=== PATIENT | male | born 1985 | race Caucasian/White ===

== ENCOUNTER 2016-03-13 10:15 | Outpatient (CLI) | payer MEDICAID, OTHER | END 2016-03-13 10:16 | disposition home or self-care (01) | DX: G47.33 Obstructive sleep apnea (adult) (pediatric) (principal) ==

== ENCOUNTER 2016-06-01 10:27 | Emergency (ER) | payer MEDICAID, OTHER ==
[2016-06-01] MEDS ORDERED: PROPARACAINE 0.5% OPHTH DROPS 15 ML ONE (11:58)
[2016-06-01] MEDS ORDERED: ERYTHROMYCIN OPHTH OINT 1 GM TUBE ONE (12:06)
== END 2016-06-01 12:21 | disposition home or self-care (01) ==
DX: H10.9 Unspecified conjunctivitis (principal); I10 Essential (primary) hypertension; E11.9 Type 2 diabetes mellitus without complications; Z79.4 Long term (current) use of insulin; Z87.891 Personal history of nicotine dependence
CPT/HCPCS: 99283; J3490

== ENCOUNTER 2016-07-21 10:18 | Outpatient (CLI) | payer MEDICAID ==
[2016-07-21 14:39] LABS: HEMOGLOBIN A1C 0.82 g/dL
[2016-07-21 15:00] LABS: ALBUMIN/GLOBULIN RATIO 1.5 (1.0-2.2); BILIRUBIN,TOTAL 1.2 mg/dL (0.2-1.0); BUN - BLOOD UREA NITROGEN 15 mg/dL (6-20); CARBON DIOXIDE - CO2 25 mmol/L (21-32); CHLORIDE 105 mmol/L (101-111); CHOLESTEROL 153 mg/dL; CREATININE 0.6 mg/dL (0.6-1.2); GFR - MDRD 158 (>89); GLUCOSE 141 mg/dL (70-100); HDL CHOLESTEROL 22 mg/dL; POTASSIUM 3.7 mmol/L (3.5-5.0); SODIUM 138 mmol/L (135-145); TRIGLYCERIDES 98 mg/dL; VLDL CHOLESTEROL 20 mg/dL
== END 2016-07-21 10:19 | disposition home or self-care (01) ==
LOC: LAB.WCP 10:18
PROVIDERS: ATTEND Family Medicine
DX: E11.9 Type 2 diabetes mellitus without complications (principal)
CPT/HCPCS: 36415; 80053; 80061; 82043; 83036; 84443

== ENCOUNTER 2016-08-22 11:45 | Outpatient (CLI) | payer MEDICAID | END 2016-08-22 11:46 | disposition home or self-care (01) | LOC: LAB.WCP 11:45 | PROVIDERS: ATTEND Family Medicine | DX: M79.676 Pain in unspecified toe(s) (principal) | CPT/HCPCS: 87070; 87077; 87205 ==

== ENCOUNTER 2017-09-20 11:27 | Emergency (ER) | payer MEDICAID ==
[2017-09-20] MEDS ORDERED: LIDOCAINE-EPINEPH-TETRACAINE 3 ML SYRINGE TOP STA (12:43)
[2017-09-20] MEDS ORDERED: cephALEXin 250 MG CAPSULE PO STA (12:43)
--- NOTE | 2017-09-20 13:15 | XRAY Report ---
Procedure Date: 09/20/2017 Accession Number: [id number] / [id number] Procedure: XR - Knee 4 View LT CPT Code: FULL RESULT: EXAM: LEFT KNEE RADIOGRAPHY EXAM DATE: 09/20/2017 01:04 PM. CLINICAL HISTORY: Fall on knee. Pain COMPARISON: None. TECHNIQUE: 4 views. FINDINGS: Bones: Normal. No fractures or bone lesions. Joints: Normal. No effusion. No subluxations. Soft Tissues: Normal. No soft tissue swelling. IMPRESSION: Normal knee radiography. RADIA
--- NOTE | 2017-09-20 14:18 | ED Physician Documentation ---
History of Present Illness - Stated complaint Stated Complaint: LT KNEE INJ - Chief complaint Chief Complaint: Ext Problem - Additonal information Additional information: hx from pt 31 male slipped on a placemenat and landed on L knee suffering a large arasion inc redness swelling and pain tdap UTD Review of Systems Constitutional: denies: Fever Musculoskeletal: reports: Joint pain PD PAST MEDICAL HISTORY - Past Medical History Past Medical History: Yes Cardiovascular: Hypertension Endocrine/Autoimmune: Type 2 diabetes - Present Medications Home Medications: Ambulatory Orders Medication Instructions Recorded Confirmed Cephalexin [Keflex] 500 mg PO Q6H #28 capsule 09/20/17 - Allergies Allergies/Adverse Reactions: Allergies Allergy/AdvReac Type Severity Reaction Status Date / Time No Known Drug Allergies Allergy Verified 09/20/17 11:32 - Social History Does the pt smoke?: No Smoking Status: Never smoker Does the pt drink ETOH?: Yes Does the pt have substance abuse?: No - Immunizations Immunizations are current?: Yes PD ED PE NORMAL - Vitals Vital signs reviewed: Yes - Extremities Extremities: Other (L knee + smalleffusion, large abrasions with necrotic superficial tissue and some dc and surrounding erythema, able to range knee s sig pain, small abrasion to dorsum of foot without infection, MSV intact) Results - Vitals Vitals: Vital Signs - 24 hr 09/20/17 11:30 Temperature 35.2 C L Heart Rate 81 Respiratory 20 Rate Blood Pressure 151/91 H O2 Saturation 98 Oxygen O2 Source Room air - Rads (name of study) knee Radiology: See rad report (no acute) PD MEDICAL DECISION MAKING - Sepsis Event Vital Signs: Vital Signs - 24 hr 09/20/17 11:30 Temperature 35.2 C L Heart Rate 81 Respiratory 20 Rate Blood Pressure 151/91 H O2 Saturation 98 Oxygen O2 Source Room air Departure - Departure Disposition: 01 Home, Self Care Clinical Impression: Infected abrasion Condition: Good Instructions: ED Abrasion Follow-Up: Avelino Kaplan MD [Primary Care Provider] - (for a recheck next week) Prescriptions: Cephalexin [Keflex] 500 mg PO Q6H #28 capsule Comments: The xray is fine - no fractures and no suggesting of deep tissue or bone infection The wound has been debrided and cleaned up and I have prescribed antibiotics for the developing infection. Please wash the wound and apply antibiotic ointment twice a day. Follow up with Dr Kaplan next week Return if worse
[2017-09-20 14:25] VITALS: BP 126/84
== END 2017-09-20 14:28 | disposition home or self-care (01) ==
LOC: ED 11:27
DX: S80.212A Abrasion, left knee, initial encounter (principal); L08.9 Local infection of the skin and subcutaneous tissue, unspecified; W01.10XA Fall on same level from slipping, tripping and stumbling with subsequent striking against unspecified object, initial encounter; I10 Essential (primary) hypertension; E11.9 Type 2 diabetes mellitus without complications
CPT/HCPCS: 73564; 99283; A9270

== ENCOUNTER 2017-12-08 10:21 | Emergency (ER) | payer SELFPAY ==
[2017-12-08 10:32] VITALS: BP 143/108
[2017-12-08] MEDS ORDERED: PROPARACAINE 0.5% OPHTH DROPS 15 ML RIGHTEYE STA (10:34)
--- NOTE | 2017-12-08 11:03 | ED Physician Documentation ---
PD HPI OPHTHO - Stated complaint Stated Complaint: EYE SCRATCH - Chief complaint Chief Complaint: Heent - History obtained from History obtained from: Patient - History of Present Illness Timing - onset: Enter time (729), Today Timing - duration: Hours Timing - details: Abrupt onset, Still present Location: Right Quality / character: Burning, Aching, Sharp Associated symptoms: Redness, Tearing, FB sensation Contributing factors: Blunt trauma Similar symptoms before: Has not had sx before Recently seen: Not recently seen - Additional information Additional information: 32-year-old previously well male was playing with his daughter this morning when she scratched him in the right eye. He had acute pain and has redness to the eye and has a foreign body sensation. He has tremendous pain associated with this. He has a lot of relief with the use of the proparacaine eyedrop. Review of Systems Constitutional: denies: Fever, Chills Eyes: reports: Irritation, Other (severe pain). denies: Loss of vision, Decreased vision Ears: denies: Ear pain Nose: denies: Congestion Throat: denies: Sore throat Respiratory: denies: Cough GI: denies: Vomiting PD PAST MEDICAL HISTORY - Past Medical History Past Medical History: Yes Cardiovascular: Hypertension Endocrine/Autoimmune: Type 2 diabetes Psych: ADD/ADHD - Past Surgical History Past Surgical History: No - Present Medications Home Medications: Ambulatory Orders Medication Instructions Recorded Confirmed Neomycin/Poly/Dex Ophth Drops 1 drops RIGHTEYE QID #1 bottle 12/08/17 [Maxitrol Ophth Drops] Oxycodone HCl/Acetaminophen 1 - 2 each PO Q6HR PRN #12 tablet 12/08/17 [Oxycodone-Acetaminophen 5-325] - Allergies Allergies/Adverse Reactions: Allergies Allergy/AdvReac Type Severity Reaction Status Date / Time No Known Drug Allergies Allergy Verified 12/08/17 10:32 - Social History Does the pt smoke?: No Smoking Status: Never smoker Does the pt drink ETOH?: Yes ETOH Use: Wine, Beer, Liquor Does the pt have substance abuse?: No - Immunizations Immunizations are current?: Yes - POLST Patient has POLST: No PD ED PE NORMAL - Vitals Vital signs reviewed: Yes (hypertensive ) - General General: Alert and oriented X 3, No acute distress, Well developed/nourished - HEENT HEENT: Atraumatic, PERRL, EOMI, Other (There is marked injection of the sclera on the right and a central corneal abrasion that is about 6mm in diameter in the center of the cornea. It looks like it would hurt. ) - Neck Neck: Supple, no meningeal sign - Respiratory Respiratory: No respiratory distress - Extremities Extremities: No deformity, No edema - Neuro Neuro: Alert and oriented X 3, leadite heater 2-12 intact, No motor deficit, No sensory deficit, Normal speech Eye Opening: Spontaneous Motor: Obeys Commands Verbal: Oriented GCS Score: 15 - Psych Psych: Normal mood, Normal affect Results - Vitals Vitals: Vital Signs - 24 hr 12/08/17 10:28 Temperature 36.0 C L Heart Rate 69 Respiratory 16 Rate Blood Pressure 143/108 H O2 Saturation 98 Oxygen O2 Source Room air PD MEDICAL DECISION MAKING - ED course Complexity details: considered differential, d/w patient ED course: 32 y/o male with a central corneal abrasion has lot of relief with the use of the proparicaine and we will put him on some maxitrol and some pain medication. - Sepsis Event Vital Signs: Vital Signs - 24 hr 12/08/17 10:28 Temperature 36.0 C L Heart Rate 69 Respiratory 16 Rate Blood Pressure 143/108 H O2 Saturation 98 Oxygen O2 Source Room air Departure - Departure Disposition: 01 Home, Self Care Clinical Impression: Corneal abrasion, right Qualifiers: Encounter type: initial encounter Qualified Code(s): S05.01XA - Injury of conjunctiva and corneal abrasion without foreign body, right eye, initial encounter Condition: Stable Instructions: ED Eye Injury Corneal Abrasion Follow-Up: Avelino Kaplan MD [Primary Care Provider] - Prescriptions: Oxycodone HCl/Acetaminophen [Oxycodone-Acetaminophen 5-325] 1 - 2 each PO Q6HR PRN #12 tablet PRN Reason: Pain Neomycin/Poly/Dex Ophth Drops [Maxitrol Ophth Drops] 1 drops RIGHTEYE QID #1 bottle Forms: Activity restrictions
== END 2017-12-08 11:25 | disposition home or self-care (01) ==
LOC: ED 10:21
DX: S05.01XA Injury of conjunctiva and corneal abrasion without foreign body, right eye, initial encounter (principal); W22.8XXA Striking against or struck by other objects, initial encounter; I10 Essential (primary) hypertension; E11.9 Type 2 diabetes mellitus without complications
CPT/HCPCS: 99283; J3490

== ENCOUNTER 2018-02-07 10:05 | Outpatient (CLI) | payer MEDICAID ==
[2018-02-07 13:48] LABS: HB2 TOTAL 17.6 g/dL; HEMOGLOBIN A1C 1.73 g/dL; HEMOGLOBIN A1C % 11.1 % (4.6-6.2)
[2018-02-07 14:19] LABS: BASOPHILS # (AUTO) 0.1 10^3/uL (0.0-0.1); EOSINOPHILS # (AUTO) 0.3 10^3/uL (0.0-0.7); EOSINOPHILS % (AUTO) 5.5 %; HGB - HEMOGLOBIN 15.9 g/dL (14.0-18.0); LYMPHOCYTES % (AUTO) 38.8 %; MEAN CORPUSCULAR HEMOGLOBIN 29.6 pg (27.0-31.0); MEAN CORPUSCULAR HGB CONC 35.3 g/dL (32.0-36.0); MEAN CORPUSCULAR VOLUME 83.9 fL (80.0-94.0); MEAN PLATELET VOLUME 10.2 fL (7.4-11.4); MONOCYTES # (AUTO) 0.4 10^3/uL (0.0-1.0); MONOCYTES % (AUTO) 7.6 %; NEUTROPHILS # (AUTO) 2.5 10^3/uL (1.5-6.6); NEUTROPHILS % (AUTO) 47.1 %; PLT - PLATELET COUNT 231 10^3/uL (130-450); RED BLOOD COUNT 5.38 10^6/uL (4.70-6.10); RED CELL DISTRIBUTION WIDTH 12.9 % (12.0-15.0); WHITE BLOOD COUNT 5.3 x10^3/uL (4.8-10.8)
[2018-02-07 14:48] LABS: CHOLESTEROL 519 mg/dL
[2018-02-07 14:55] LABS: SODIUM 133 mmol/L (135-145)
[2018-02-07 14:56] LABS: AST ASPARTATE AMINOTRANSFERASE 38 IU/L (10-42); BILIRUBIN,TOTAL 1.6 mg/dL (0.2-1.0); BUN - BLOOD UREA NITROGEN 24 mg/dL (6-20); CARBON DIOXIDE - CO2 24 mmol/L (21-32); CHLORIDE 97 mmol/L (101-111); CREATININE 0.7 mg/dL (0.6-1.2); GFR - MDRD 131 (>89); GLUCOSE 371 mg/dL (70-100)
[2018-02-07 14:57] LABS: ALBUMIN 4.1 g/dL (3.2-5.5); ALBUMIN/GLOBULIN RATIO 1.9 (1.0-2.2); ALT ALANINE AMINOTRANSFERASE 55 IU/L (10-60); TOTAL PROTEIN 6.3 g/dL (6.7-8.2)
== END 2018-02-07 23:59 | disposition home or self-care (01) ==
LOC: LAB.WCP 10:05
PROVIDERS: ATTEND Family Medicine
DX: E11.9 Type 2 diabetes mellitus without complications (principal)
CPT/HCPCS: 36415; 80053; 80061; 82043; 83036; 83721; 84443; 85025

== ENCOUNTER 2018-05-15 08:00 | Outpatient (CLI) | payer MEDICAID ==
[2018-05-15 12:52] LABS: ALBUMIN/GLOBULIN RATIO 1.3 (1.0-2.2); BILIRUBIN,TOTAL 1.1 mg/dL (0.2-1.0); CALCIUM 8.9 mg/dL (8.5-10.3); CREATININE 0.8 mg/dL (0.6-1.2); TOTAL PROTEIN 7.2 g/dL (6.7-8.2)
[2018-05-15 13:10] LABS: HB2 TOTAL 17.2 g/dL; HEMOGLOBIN A1C 1.25 g/dL; HEMOGLOBIN A1C % 8.8 % (4.6-6.2)
== END 2018-05-15 23:59 | disposition home or self-care (01) ==
LOC: LAB.WCP 08:00
PROVIDERS: ATTEND Family Medicine
DX: M43.10 Spondylolisthesis, site unspecified (principal); E11.42 Type 2 diabetes mellitus with diabetic polyneuropathy; F41.8 Other specified anxiety disorders
CPT/HCPCS: 36415; 80053; 83036

== ENCOUNTER 2018-07-30 09:03 | Outpatient (CLI) | payer MEDICAID | END 2018-07-30 09:04 | disposition home or self-care (01) | LOC: SC 09:03 | PROVIDERS: ATTEND Internal Medicine Pulmonary Disease | DX: G47.33 Obstructive sleep apnea (adult) (pediatric) (principal) | CPT/HCPCS: 99212; 99213 ==

== ENCOUNTER 2018-08-07 09:04 | Outpatient (CLI) | payer MEDICAID ==
[2018-08-07 12:44] LABS: ALBUMIN/GLOBULIN RATIO 1.2 (1.0-2.2); ALKALINE PHOSPHATASE 40 IU/L (42-121); ALT ALANINE AMINOTRANSFERASE 59 IU/L (10-60); AST ASPARTATE AMINOTRANSFERASE 35 IU/L (10-42); BILIRUBIN,TOTAL 0.6 mg/dL (0.2-1.0); BUN - BLOOD UREA NITROGEN 13 mg/dL (6-20); CALCIUM 8.6 mg/dL (8.5-10.3); CARBON DIOXIDE - CO2 23 mmol/L (21-32); CHLORIDE 105 mmol/L (101-111); CHOL/HDL RATIO 6.2 (<5.0); CHOLESTEROL 160 mg/dL; CREATININE 0.7 mg/dL (0.6-1.2); GFR - MDRD 131 (>89); GLUCOSE 152 mg/dL (70-100); HDL CHOLESTEROL 26 mg/dL; LDL CHOLESTEROL,CALCULATED 100 mg/dL; LDL/HDL RATIO 3.8 (<3.6); SODIUM 135 mmol/L (135-145); TOTAL PROTEIN 7.3 g/dL (6.7-8.2); VLDL CHOLESTEROL 34 mg/dL
[2018-08-07 12:52] LABS: HB2 TOTAL 15.9 g/dL; HEMOGLOBIN A1C 0.95 g/dL; HEMOGLOBIN A1C % 7.6 % (4.6-6.2)
== END 2018-08-07 09:05 | disposition home or self-care (01) ==
LOC: LAB.WCP 09:04
PROVIDERS: ATTEND Family Medicine
DX: E11.9 Type 2 diabetes mellitus without complications (principal)
CPT/HCPCS: 36415; 80053; 80061; 83036; 83721

== ENCOUNTER 2019-01-24 09:00 | Outpatient (CLI) | payer MEDICAID | END 2019-01-24 23:59 | disposition home or self-care (01) | LOC: LAB.R 09:00 | PROVIDERS: ATTEND Family Medicine | DX: R19.7 Diarrhea, unspecified (principal) | CPT/HCPCS: 81599; 83630; 87045; 87046; 87329; 87493 ==

== ENCOUNTER 2019-06-27 13:48 | Emergency (ER) | payer MEDICAID ==
--- NOTE | 2019-06-27 16:07 | XRAY Report ---
Reason: thumb injury Procedure Date: 06/27/2019 Accession Number: [id number] / [id number] Procedure: XR - Finger(s) RT CPT Code: Final Report FULL RESULT: EXAM: RIGHT FIRST DIGIT RADIOGRAPHY EXAM DATE: 06/27/2019 03:53 PM. CLINICAL HISTORY: Thumb injury. COMPARISON: None. TECHNIQUE: 3 views. FINDINGS: Bones: Sesamoids anterior to the metacarpophalangeal articulation and the interphalangeal articulation.. No fracture or bone lesion. Joints: Normal. No subluxations. Soft Tissues: Normal. No soft tissue swelling. IMPRESSION: No fracture identified [facility]
--- NOTE | 2019-06-27 16:48 | ED Physician Documentation ---
PD HPI UPPER EXT INJURY - Stated complaint Stated Complaint: RT THUMB PX - Chief complaint Chief Complaint: Ext Problem - History obtained from History obtained from: Patient - History of Present Illness Location: Right (He fell 2 months ago and injured his right thumb, persistent pain at the MCP.) Review of Systems Constitutional: reports: Reviewed and negative Ears: reports: Reviewed and negative Nose: reports: Reviewed and negative PD PAST MEDICAL HISTORY - Past Medical History Cardiovascular: Hypertension Neuro: None Endocrine/Autoimmune: Type 2 diabetes GI: GERD : None HEENT: None Psych: ADD/ADHD Musculoskeletal: None Derm: None - Past Surgical History Past Surgical History: No - Present Medications Home Medications: Ambulatory Orders Medication Instructions Recorded Confirmed Neomycin/Poly/Dex Ophth Drops 1 drops RIGHTEYE QID #1 bottle 12/08/17 [Maxitrol Ophth Drops] Oxycodone HCl/Acetaminophen 1 - 2 each PO Q6HR PRN #12 tablet 12/08/17 [Oxycodone-Acetaminophen 5-325] - Allergies Allergies/Adverse Reactions: Allergies Allergy/AdvReac Type Severity Reaction Status Date / Time No Known Drug Allergies Allergy Verified 06/27/19 13:57 - Social History Does the pt smoke?: No Smoking Status: Never smoker Does the pt drink ETOH?: Yes Does the pt have substance abuse?: No - Immunizations Immunizations are current?: Yes - POLST Patient has POLST: No PD ED PE NORMAL - Vitals Vital signs reviewed: Yes - General General: Alert and oriented X 3, No acute distress - Extremities Extremities: Other (No tenderness of the right thumb, no swelling or deformity. He does have laxity of the ulnar collateral ligaments compared with the other side.) - Neuro Neuro: Alert and oriented X 3, Normal speech Results - Vitals Vitals: Vital Signs - 24 hr 06/27/19 13:52 Temperature 36 C L Heart Rate 65 Respiratory 18 Rate Blood Pressure 143/85 H O2 Saturation 95 Oxygen O2 Source Room air - Rads (name of study) X-ray right thumb Radiology: EMP read contemporaneously (Normal) Departure - Departure Disposition: 01 Home, Self Care Clinical Impression: Rupture of UCL of right thumb Qualifiers: Encounter type: initial encounter Qualified Code(s): S63.641A - Sprain of metacarpophalangeal joint of right thumb, initial encounter Condition: Good Record reviewed to determine appropriate education?: Yes Instructions: [facility] Thumb Surg Follow-Up: Mark Soriano MD [Physician No Access] - Comments: It appears that 2 months ago you injured the ulnar collateral ligaments of the right thumb. You should follow-up next week with a hand surgeon. The closest is in [place], Dr. Ramos's number is listed on this form. The other number I am seeing online is [phone].
[2019-06-27 17:09] VITALS: BP 130/81
== END 2019-06-27 17:08 | disposition home or self-care (01) ==
LOC: ED 13:48
DX: S63.641A Sprain of metacarpophalangeal joint of right thumb, initial encounter (principal); W19.XXXA Unspecified fall, initial encounter; I10 Essential (primary) hypertension; E11.9 Type 2 diabetes mellitus without complications
CPT/HCPCS: 73140; 99283

== ENCOUNTER 2019-07-22 08:00 | Outpatient (CLI) | payer MEDICAID ==
[2019-07-22 13:45] LABS: BASOPHILS # (AUTO) 0.1 10^3/uL (0.0-0.1); BASOPHILS % (AUTO) 1.4 %; EOSINOPHILS # (AUTO) 0.3 10^3/uL (0.0-0.7); EOSINOPHILS % (AUTO) 4.9 %; HGB - HEMOGLOBIN 14.8 g/dL (14.0-18.0); LYMPHOCYTES # (AUTO) 2.2 10^3/uL (1.5-3.5); LYMPHOCYTES % (AUTO) 37.8 %; MEAN CORPUSCULAR HEMOGLOBIN 28.8 pg (27.0-31.0); MEAN CORPUSCULAR VOLUME 84.8 fL (80.0-94.0); MEAN PLATELET VOLUME 11.3 fL (7.4-11.4); MONOCYTES # (AUTO) 0.6 10^3/uL (0.0-1.0); MONOCYTES % (AUTO) 9.7 %; NEUTROPHILS # (AUTO) 2.7 10^3/uL (1.5-6.6); NEUTROPHILS % (AUTO) 45.9 %; PLT - PLATELET COUNT 247 10^3/uL (130-450); RED BLOOD COUNT 5.13 10^6/uL (4.70-6.10); RED CELL DISTRIBUTION WIDTH 12.7 % (12.0-15.0); WHITE BLOOD COUNT 5.9 x10^3/uL (4.8-10.8)
[2019-07-22 13:47] LABS: GLUCOSE, URINE (UA) NEGATIVE (NEGATIVE); KETONES,URINE (UA) NEGATIVE (NEGATIVE); LEUKOCYTE ESTERASE, URINE NEGATIVE (NEGATIVE); NITRITE,URINE NEGATIVE (NEGATIVE); OCCULT BLOOD,URINE NEGATIVE (NEGATIVE); PROTEIN,URINE NEGATIVE (NEGATIVE); UROBILINOGEN,URINE 2 E.U./dL (NORMAL)
[2019-07-22 13:53] LABS: BILIRUBIN,URINE NEGATIVE (NEGATIVE); CLARITY,URINE CLEAR (CLEAR); ICTOTEST,URINE NEGATIVE
[2019-07-22 14:15] LABS: ALBUMIN 4.1 g/dL (3.2-5.5); ALBUMIN/GLOBULIN RATIO 1.2 (1.0-2.2); BILIRUBIN,TOTAL 0.9 mg/dL (0.2-1.0); CREATININE 0.8 mg/dL (0.6-1.2); TOTAL PROTEIN 7.4 g/dL (6.7-8.2)
[2019-07-22 14:21] LABS: HB2 TOTAL 15.9 g/dL; HEMOGLOBIN A1C 0.89 g/dL; HEMOGLOBIN A1C % 7.3 % (4.6-6.2)
[2019-07-22 14:22] LABS: CREATININE,URINE 210.8 mg/dL; MICROALBUM/CREATININE RATIO,UR 20.9 ug/mg (<30.0); MICROALBUMIN,URINE 4.4 mg/dL (0-300.0)
== END 2019-07-22 23:59 | disposition home or self-care (01) ==
LOC: LAB.WCP 08:00
PROVIDERS: ATTEND Family Medicine
DX: E11.9 Type 2 diabetes mellitus without complications (principal); R19.7 Diarrhea, unspecified; R82.90 Unspecified abnormal findings in urine
CPT/HCPCS: 36415; 80053; 81001; 81003; 82043; 82570; 83036; 85025; 87086

== ENCOUNTER 2019-07-25 12:40 | Outpatient (CLI) | payer MEDICAID ==
[2019-07-26 15:19] LABS: HEPATITIS C ANTIBODY NON-REACTIVE (NON-REACTIVE)
== END 2019-07-25 12:41 | disposition home or self-care (01) ==
LOC: LAB 12:40
PROVIDERS: ATTEND Nurse Practitioner Family
DX: R82.998 Other abnormal findings in urine (principal)
CPT/HCPCS: 36415; 86317; 86709; 86803

== ENCOUNTER 2019-08-01 12:41 | Outpatient (CLI) | payer MEDICAID ==
--- NOTE | 2019-08-01 14:37 | Ultrasound Report ---
Reason: OTHER ABNORMAL FINDINGS IN URINE Procedure Date: 08/01/2019 Accession Number: [id number] / [id number] Procedure: US - Abdomen Complete CPT Code: Final Report FULL RESULT: EXAM: ABDOMEN ULTRASOUND EXAM DATE: 08/01/2019 02:13 PM. CLINICAL HISTORY: OTHER ABNORMAL FINDINGS IN URINE. Right upper quadrant pain for 2-3 months. COMPARISON: None. TECHNIQUE: Real-time scanning was performed with static images obtained. FINDINGS: Liver: Moderate diffuse fatty liver with diffuse hyperechogenicity. 20 cm. Main portal vein flow: Hepatopetal. Gallbladder: Normal. No stones, wall thickening, or sonographic Lay's sign. Biliary System: Common duct measures 3 mm. No intrahepatic or extrahepatic ductal dilatation. Pancreas: Visualized portion is unremarkable. Kidneys: Right: 14.8 cm longitudinally. Within normal limits. No contour-deforming mass, stones, or hydronephrosis. Normal variant column of López is noted. Left: 14.1 cm longitudinally. Within normal limits. No contour-deforming mass, stones, or hydronephrosis. Normal variant column of López is noted. Spleen: 11.8 cm. Normal in size and echotexture. Aorta and Inferior Vena Cava: Unremarkable. IMPRESSION: 1. Moderate fatty liver. No acute findings. See above. RADIA
== END 2019-08-01 12:42 | disposition home or self-care (01) ==
LOC: DI 12:41
PROVIDERS: ATTEND Nurse Practitioner Family
DX: K76.0 Fatty (change of) liver, not elsewhere classified (principal)
CPT/HCPCS: 76700

== ENCOUNTER 2019-09-15 11:43 | Outpatient (CLI) | payer MEDICAID | END 2019-09-15 23:59 | disposition home or self-care (01) | LOC: COV 11:43 | PROVIDERS: ATTEND Family Medicine | DX: Z01.812 Encounter for preprocedural laboratory examination (principal); Z20.828 Contact with and (suspected) exposure to other viral communicable diseases ==

== ENCOUNTER 2019-12-18 20:20 | Outpatient (CLI) | payer MEDICAID | END 2019-12-18 20:21 | disposition home or self-care (01) | LOC: COV 20:20 | PROVIDERS: ATTEND Family Medicine | DX: Z20.828 Contact with and (suspected) exposure to other viral communicable diseases (principal) ==

== ENCOUNTER 2019-12-30 23:26 | Outpatient (CLI) | payer MEDICAID | END 2019-12-30 23:27 | disposition critical access hospital (66) | LOC: EMS 23:26 | PROVIDERS: ATTEND Surgery | DX: R56.9 Unspecified convulsions (principal) | CPT/HCPCS: A0425; A0429; A0999 ==

== ENCOUNTER 2019-12-30 23:42 | Emergency (ER) | payer MEDICAID ==
--- NOTE | 2019-12-31 00:40 | ED Physician Documentation ---
PD HPI SEIZURE - Stated complaint Stated Complaint: POSS SEIZURE - Chief complaint Chief Complaint: General - History obtained from History obtained from: Patient - History of Present Illness Timing - onset: Today (shortly [employer]) Witnessed: Witnessed (Says he was not feeling well earlier in the day while at work and when he came home he was pale and sweaty. He had decreased talking abruptly and looked like he was going to pass out. He started tremoring whole body and she walked him a couple of steps to the couch where he fainted and seized.) Number of seizures: Single, Lasted minutes Description of seizure activity: Generalized Injury during seizure: No: Fell, Head injury Associated symptoms: Diaphoresis. No: Chest pain, Dyspnea History of seizures: No: Known seizure disorder Contributing factors: Other (He was feeling ill for much of the day with feeling of chills, aches, some nausea. Denies headache. He has had abdominal pain for about a week epigastric worse with eating.) Similar symptoms before: Has not had sx before (Had the epigastric pain and evaluated by GI with endoscopy and treated what sounds like for H. pylori. No prior seizure-like episodes.) Recently seen: Not recently seen Review of Systems Constitutional: reports: Chills (today), Myalgias. denies: Fever Nose: denies: Rhinorrhea / runny nose, Congestion Throat: denies: Sore throat Cardiac: denies: Chest pain / pressure Respiratory: denies: Cough GI: reports: Abdominal Pain (intermittent for the past week), Nausea. denies: Vomiting, Diarrhea, Bloody / black stool : denies: Dysuria Neurologic: reports: Generalized weakness (today), Syncope. denies: Difficulty speaking, Headache, Head injury Immunocompromised: denies: Immunocompromised PD PAST MEDICAL HISTORY - Past Medical History Cardiovascular: Hypertension Neuro: None Endocrine/Autoimmune: Type 2 diabetes GI: GERD : None HEENT: None Psych: ADD/ADHD Musculoskeletal: None Derm: None - Past Surgical History Past Surgical History: No - Present Medications Home Medications: Ambulatory Orders Medication Instructions Recorded Confirmed clonazePAM [Clonazepam] 0.5 mg PO DAILY PRN 12/30/19 12/30/19 Ondansetron Odt [Zofran] 4 mg TL Q6H PRN #10 tablet 12/31/19 Pantoprazole Sodium 20 mg PO DAILY #30 tablet.dr 12/31/19 Sucralfate [Carafate] 1 gm PO ACHS #20 tablet 12/31/19 - Allergies Allergies/Adverse Reactions: Allergies Allergy/AdvReac Type Severity Reaction Status Date / Time No Known Drug Allergies Allergy Verified 12/30/19 23:55 - Social History Does the pt smoke?: No Smoking Status: Never smoker Does the pt drink ETOH?: Yes Does the pt have substance abuse?: No Substance Use and Type: Marijuana - Immunizations Immunizations are current?: Yes - POLST Patient has POLST: No PD ED PE NORMAL - Vitals Vital signs reviewed: Yes - General General: Alert and oriented X 3, Well developed/nourished, Other (conversant and oriented.) - HEENT HEENT: Moist mucous membranes, Pharynx benign - Neck Neck: Supple, no meningeal sign, No adenopathy - Cardiac Cardiac: RRR, No murmur - Respiratory Respiratory: Clear bilaterally - Abdomen Abdomen: Normal bowel sounds, Soft, Non distended, No organomegaly, Other (tender right upper abd and epigastric area. Some guarding. No percussion tenderness. ) - Male Male : Deferred - Rectal Rectal: Deferred - Back Back: No CVA TTP - Derm Derm: Warm and dry. No: Normal color (mild pallor) Results - Vitals Vitals: Vital Signs - 24 hr 12/30/19 12/30/19 12/31/19 23:51 23:59 00:49 Temperature 37.8 C H 37.8 C H Heart Rate 96 96 80 Respiratory 24 24 17 Rate Blood Pressure 155/97 H 155/97 H O2 Saturation 98 98 99 12/31/19 12/31/19 01:45 03:07 Temperature 37.1 C 38 C H Heart Rate 78 Respiratory 18 Rate Blood Pressure 123/64 O2 Saturation 99 Oxygen O2 Source Room air - Labs Labs: Laboratory Tests 12/31/19 12/31/19 12/31/19 01:12 01:12 01:12 WBC 7.5 RBC 5.00 Hgb 15.1 Hct 43.6 MCV 87.2 MCH 30.2 MCHC 34.6 RDW 12.8 Plt Count 234 MPV 10.6 Neut # (Auto) 5.2 Lymph # (Auto) 1.5 [place] # (Auto) 0.6 Eos # (Auto) 0.1 Baso # (Auto) 0.1 Absolute Nucleated RBC 0.00 Nucleated RBC % 0.0 Sodium 139 Potassium 3.7 Chloride 104 Carbon Dioxide 27 Anion Gap 8.0 BUN 15 Creatinine 0.8 Estimated GFR (MDRD) 111 Glucose 155 H Lactic Acid Calcium 9.3 Magnesium 1.6 L Total Bilirubin 0.9 AST 22 ALT 34 Alkaline Phosphatase 37 L Total Protein 7.7 Albumin 4.3 Globulin 3.4 Albumin/Globulin Ratio 1.3 Lipase 36 TSH 0.94 Prolactin 7.80 Urine Color Urine Clarity Urine pH Ur Specific [place] Urine Protein Urine Glucose (UA) Urine Ketones Urine Occult Blood Urine Nitrite Urine Bilirubin Urine Urobilinogen Ur Leukocyte Esterase Ur Microscopic Review Urine Culture Comments Urine Opiates Screen Ur Oxycodone Screen Urine Methadone Screen Ur Propoxyphene Screen Ur Barbiturates Screen Ur Tricyclics Screen Ur Phencyclidine Scrn Ur Amphetamine Screen U Methamphetamines Scrn U Benzodiazepines Scrn Urine Cocaine Screen U Cannabinoids Screen 12/31/19 12/31/19 01:25 01:39 WBC RBC Hgb Hct MCV MCH MCHC RDW Plt Count MPV Neut # (Auto) Lymph # (Auto) [place] # (Auto) Eos # (Auto) Baso # (Auto) Absolute Nucleated RBC Nucleated RBC % Sodium Potassium Chloride Carbon Dioxide Anion Gap BUN Creatinine Estimated GFR (MDRD) Glucose Lactic Acid 1.0 Calcium Magnesium Total Bilirubin AST ALT Alkaline Phosphatase Total Protein Albumin Globulin Albumin/Globulin Ratio Lipase TSH Prolactin Urine Color YELLOW Urine Clarity CLEAR Urine pH 5.5 Ur Specific [place] >=1.030 H Urine Protein NEGATIVE Urine Glucose (UA) NEGATIVE Urine Ketones NEGATIVE Urine Occult Blood NEGATIVE Urine Nitrite NEGATIVE Urine Bilirubin NEGATIVE Urine Urobilinogen 0.2 (NORMAL) Ur Leukocyte Esterase NEGATIVE Ur Microscopic Review NOT INDICATED Urine Culture Comments NOT INDICATED Urine Opiates Screen NEGATIVE Ur Oxycodone Screen NEGATIVE Urine Methadone Screen NEGATIVE Ur Propoxyphene Screen NEGATIVE Ur Barbiturates Screen NEGATIVE Ur Tricyclics Screen NEGATIVE Ur Phencyclidine Scrn NEGATIVE Ur Amphetamine Screen NEGATIVE U Methamphetamines Scrn NEGATIVE U Benzodiazepines Scrn NEGATIVE Urine Cocaine Screen NEGATIVE U Cannabinoids Screen POSITIVE H - Rads (name of study) head CT Radiology: Prelim report reviewed (no acute process), See rad report abd CT Radiology: Prelim report reviewed (No acute abnormalities nor signs of localized infections.), See rad report PD MEDICAL DECISION MAKING - ED course Complexity details: reviewed results (feeling better with fluids/meds. ), c onsidered differential (described seizure like activity by , but he had pre- syncope symptoms prior. So may have been syncope with seizure related and less likely primary seizure. ), d/w patient, d/w family () ED course: Despite feeling generally ill with chills and malaise and appearing diaphoretic and then fainting with seizure-like activity, the patient's labs are actually quite normal with a normal abdominal CT and normal white count and lactate. He is tender in the upper abdomen and has had prior history of gastritis/ulcer. Presume a recurrence of this. Given his age, be less likely to have primary epilepsy and a more inclined to think he had seizure-like activity related to the syncope. He is feeling improved with fluids here Departure - Departure Disposition: 01 Home, Self Care Clinical Impression: Witnessed seizure-like activity, Upper abdominal pain Syncope Qualifiers: Syncope type: unspecified Qualified Code(s): R55 - Syncope and collapse Condition: Stable Record reviewed to determine appropriate education?: Yes Instructions: ED Fainting Unkn Cause, ED PUD Vs Gastritis Follow-Up: [facility] [Provider Group] Prescriptions: Sucralfate [Carafate] 1 gm PO ACHS #20 tablet Pantoprazole Sodium 20 mg PO DAILY #30 tablet. Ondansetron Odt [Zofran] 4 mg TL Q6H PRN #10 tablet PRN Reason: Nausea / Vomiting Comments: Your head CT does not show any signs of acute abnormality. It would be unusual to have new onset seizures at your age and your symptoms does sound more like a illness or low blood pressure with the sweating and weakness and pale prior to the episode. I think it was more of a fainting episode with seizure-like activity. Your blood tests and CT of the abdomen do not show any obvious acute process. Your symptoms would be suggestive of recurrent gastritis or ulcer so we can tr eat it with pantoprazole acid reducing medicine. I would also start with sucralfate to coat the stomach several times a day for the first 5 days. Ondansetron if needed for nausea. Stay well-hydrated. Tylenol if needed for pains. Follow-up with your case sealer to update on your stomach symptoms. Otherwise follow-up with your primary care if not improved over the next few days. Forms: Activity restrictions Discharge Date/Time: 12/31/19 03:09
[2019-12-31] MEDS ORDERED: SODIUM CHLORIDE 0.9% 1,000 ML IV STA (01:15)
[2019-12-31] MEDS ORDERED: KETOROLAC 30 MG/ML VIAL IVP STA (01:15)
[2019-12-31] MEDS ORDERED: ONDANSETRON 4 MG/2 ML VIAL IVP STA (01:16)
[2019-12-31] MEDS ORDERED: FAMOTIDINE 20 MG/2 ML SYRINGE IVP STA (01:16)
[2019-12-31] MEDS ORDERED: KETOROLAC 15 MG/ML VIAL IVP STA (01:16)
[2019-12-31 01:21] LABS: BASOPHILS # (AUTO) 0.1 10^3/uL (0.0-0.1); BASOPHILS % (AUTO) 0.7 %; EOSINOPHILS # (AUTO) 0.1 10^3/uL (0.0-0.7); EOSINOPHILS % (AUTO) 1.9 %; HGB - HEMOGLOBIN 15.1 g/dL (14.0-18.0); LYMPHOCYTES # (AUTO) 1.5 10^3/uL (1.5-3.5); LYMPHOCYTES % (AUTO) 19.5 %; MEAN CORPUSCULAR HEMOGLOBIN 30.2 pg (27.0-31.0); MEAN CORPUSCULAR HGB CONC 34.6 g/dL (32.0-36.0); MEAN CORPUSCULAR VOLUME 87.2 fL (80.0-94.0); MEAN PLATELET VOLUME 10.6 fL (7.4-11.4); MONOCYTES # (AUTO) 0.6 10^3/uL (0.0-1.0); MONOCYTES % (AUTO) 8.2 %; NEUTROPHILS # (AUTO) 5.2 10^3/uL (1.5-6.6); NEUTROPHILS % (AUTO) 69.2 %; PLT - PLATELET COUNT 234 10^3/uL (130-450); RED CELL DISTRIBUTION WIDTH 12.8 % (12.0-15.0); WHITE BLOOD COUNT 7.5 x10^3/uL (4.8-10.8)
[2019-12-31 01:31] LABS: ALBUMIN 4.3 g/dL (3.2-5.5); ALBUMIN/GLOBULIN RATIO 1.3 (1.0-2.2); BILIRUBIN,TOTAL 0.9 mg/dL (0.2-1.0); CALCIUM 9.3 mg/dL (8.5-10.3); CREATININE 0.8 mg/dL (0.6-1.2); MAGNESIUM 1.6 mg/dL (1.7-2.8); TOTAL PROTEIN 7.7 g/dL (6.7-8.2)
[2019-12-31] MEDS ORDERED: IOVERSOL 320 100 ML VIAL IVP ONE (01:42)
[2019-12-31 01:45] LABS: GLUCOSE, URINE (UA) NEGATIVE (NEGATIVE); KETONES,URINE (UA) NEGATIVE (NEGATIVE); LEUKOCYTE ESTERASE, URINE NEGATIVE (NEGATIVE); MUDS CUTOFF CONCENTRATIONS CUTOFF CONC BELOW:; NITRITE,URINE NEGATIVE (NEGATIVE); OCCULT BLOOD,URINE NEGATIVE (NEGATIVE); PH,URINE 5.5 PH (5.0-7.5); PROTEIN,URINE NEGATIVE (NEGATIVE); UROBILINOGEN,URINE 0.2 (NORMAL) E.U./dL (NORMAL)
[2019-12-31 01:47] LABS: BILIRUBIN,URINE NEGATIVE (NEGATIVE); CLARITY,URINE CLEAR (CLEAR); ICTOTEST,URINE NEGATIVE
[2019-12-31 01:48] LABS: THYROID STIMULATING HORMONE 0.94 uIU/mL (0.34-5.60)
[2019-12-31 01:54] LABS: AMPHETAMINE SCREEN,URINE NEGATIVE (NEGATIVE); BENZODIAZEPINES SCREEN, URINE NEGATIVE (NEGATIVE); COCAINE SCREEN URINE NEGATIVE (NEGATIVE); METHADONE SCREEN, URINE NEGATIVE (NEGATIVE); METHAMPHETAMINES SCREEN, URINE NEGATIVE (NEGATIVE); OPIATE SCREEN, URINE NEGATIVE (NEGATIVE); TRICYCLIC ANTIDEPRESSANT,URINE NEGATIVE (NEGATIVE)
[2019-12-31 01:54] LABS: PROLACTIN 7.8 ng/mL
[2019-12-31 01:55] LABS: OXYCODONE SCREEN, URINE NEGATIVE (NEGATIVE); PROPOXYPHENE SCREEN, URINE NEGATIVE (NEGATIVE)
[2019-12-31 03:08] VITALS: BP 123/64
--- NOTE | 2019-12-31 07:15 | CT Report ---
PROCEDURE: HEAD WO INDICATIONS: seizure activity this evening TECHNIQUE: Noncontrast 4.5 mm thick angled axial sections acquired from the foramen magnum to the vertex. For r adiation dose reduction, the following was used: automated exposure control, adjustment of mA and/or kV according to patient size. COMPARISON: None. FINDINGS: Image quality: Excellent. CSF spaces: Basal cisterns are patent. No extra-axial fluid collections. Ventricles are normal in size and shape. Brain: No midline shift. No intracranial masses or hemorrhage. Lombardo-white matter interface is norm al. Skull and face: Calvarium and visualized facial bones are intact, without suspicious lesions. Sinuses: Visualized sinuses and mastoids are clear. IMPRESSION: No acute intracranial disease process. Reviewed by: Juhi Drew MD, PhD on 12/31/2019 7:14 AM PDT Approved by: Juhi Drew MD, PhD on 12/31/2019 7:14 AM PDT Station ID: [id number]
--- NOTE | 2019-12-31 08:36 | CT Report ---
PROCEDURE: Abdomen/Pelvis W INDICATIONS: upper abd pain for week CONTRAST: IV CONTRAST: Optiray 320 ml: 100 PO CONTRAST: *NO PO CONTRAST TECHNIQUE: After the administration of nonionic contrast, 5 mm thick sections acquired from the diaphragms to th e symphysis. 5 mm thick coronal and sagittal reformats were acquired. For radiation dose reduction, the following was used: automated exposure control, adjustment of mA and/or kV according to patient size. COMPARISON: Abdominal ultrasound 08/01/2019. FINDINGS: Image quality: Excellent. ABDOMEN: Lung bases: Lung bases are clear. Heart size is normal. Solid organs: The spleen is normal in size and enhancement. The liver is enlarged at 20.2 cm cranioc audad, and appears diffusely fatty infiltrated. Gallbladder appears normal Biliary system is non dil ated. Pancreas enhances normally. No adrenal nodules. Kidneys demonstrate normal size and enhancem ent, without hydronephrosis. Peritoneum and bowel: Bowel loops demonstrate normal wall thickness and caliber. No free fluid or a ir. Nodes and vessels: No retroperitoneal or mesenteric adenopathy by size criteria. Aorta and inferior vena cava are normal in size. Miscellaneous: No ventral hernias. PELVIS: Genitourinary: Bladder wall thickness is normal. Miscellaneous: No inguinal hernias or adenopathy. Bones: No suspicious bony lesions. No vertebral body compression fractures. IMPRESSION: Hepatomegaly, with mild fatty infiltration through the liver. This may represent a poten tial source of upper abdominal pain that has been clinically reported. There is no sign of intestinal obstruction or perforation. Reviewed by: Wolf Page MD on 12/31/2019 8:34 AM PDT Approved by: Wolf Page MD on 12/31/2019 8:34 AM PDT Station ID: [id number]
== END 2019-12-31 03:09 | disposition home or self-care (01) ==
LOC: EDUNIT# → ED 23:42
DX: R55 Syncope and collapse (principal); R56.9 Unspecified convulsions; R10.10 Upper abdominal pain, unspecified; I10 Essential (primary) hypertension; E11.9 Type 2 diabetes mellitus without complications
CPT/HCPCS: 36415; 70450; 74177; 80053; 80306; 81003; 83605; 83690; 83735; 84146; 84443; 85025; 96361; 96374; 99284; Q9967; 81001; 87086

== ENCOUNTER 2020-01-14 14:17 | Outpatient (CLI) | payer MEDICAID ==
--- NOTE | 2020-01-14 17:13 | XRAY Report ---
PROCEDURE: Shoulder 2 View LT INDICATIONS: LEFT SHOULDER PAIN TECHNIQUE: 2 views of the shoulder were acquired. COMPARISON: None. FINDINGS: Bones: No fractures or dislocations. No suspicious bony lesions. Visualized ribs appear intact. Soft tissues: No suspicious soft tissue calcifications. IMPRESSION: Mild to moderate AC joint osteoarthritis. No trauma found. Reviewed by: Wolf Page MD on 01/14/2020 5:11 PM [facility] Approved by: Wolf Page MD on 01/14/2020 5:11 PM [facility] Station ID: [id number]
== END 2020-01-14 23:59 | disposition home or self-care (01) ==
LOC: DI.WCP 14:17
PROVIDERS: ATTEND Family Medicine
DX: M19.012 Primary osteoarthritis, left shoulder (principal)

== ENCOUNTER 2020-02-26 18:27 | Outpatient (CLI) | payer MEDICAID | END 2020-02-26 18:28 | disposition home or self-care (01) | LOC: COV 18:27 | PROVIDERS: ATTEND Family Medicine | DX: Z20.828 Contact with and (suspected) exposure to other viral communicable diseases (principal) ==

== ENCOUNTER 2020-04-26 16:57 | Outpatient (CLI) | payer MEDICAID | END 2020-04-26 16:58 | disposition home or self-care (01) | LOC: COV 16:57 | PROVIDERS: ATTEND Family Medicine | DX: Z20.822 Contact with and (suspected) exposure to COVID-19 (principal) ==

== ENCOUNTER 2020-05-12 08:00 | Outpatient (CLI) | payer MEDICAID ==
[2020-05-12 12:36] LABS: BASOPHILS # (AUTO) 0.1 10^3/uL (0.0-0.1); BASOPHILS % (AUTO) 1.3 %; EOSINOPHILS # (AUTO) 0.4 10^3/uL (0.0-0.7); EOSINOPHILS % (AUTO) 6.1 %; HCT - HEMATOCRIT 44.9 % (42.0-52.0); HGB - HEMOGLOBIN 15.6 g/dL (14.0-18.0); LYMPHOCYTES % (AUTO) 27.2 %; MEAN CORPUSCULAR HEMOGLOBIN 29.8 pg (27.0-31.0); MEAN CORPUSCULAR HGB CONC 34.7 g/dL (32.0-36.0); MEAN CORPUSCULAR VOLUME 85.9 fL (80.0-94.0); MEAN PLATELET VOLUME 11.5 fL (7.4-11.4); MONOCYTES # (AUTO) 0.6 10^3/uL (0.0-1.0); MONOCYTES % (AUTO) 8.5 %; NEUTROPHILS % (AUTO) 56.1 %; PLT - PLATELET COUNT 241 10^3/uL (130-450); RED BLOOD COUNT 5.23 10^6/uL (4.70-6.10); RED CELL DISTRIBUTION WIDTH 12.4 % (12.0-15.0); WHITE BLOOD COUNT 7.2 x10^3/uL (4.8-10.8)
[2020-05-12 12:42] LABS: ESTIMATED AVERAGE GLUCOSE 177 mg/dL (70-100); HEMOGLOBIN A1c% 7.8 % (4.27-6.07)
[2020-05-12 12:56] LABS: ALBUMIN 4.2 g/dL (3.2-5.5); ALBUMIN/GLOBULIN RATIO 1.4 (1.0-2.2); ALKALINE PHOSPHATASE 58 IU/L (42-121); ALT ALANINE AMINOTRANSFERASE 34 IU/L (10-60); AST ASPARTATE AMINOTRANSFERASE 22 IU/L (10-42); BILIRUBIN,TOTAL 0.6 mg/dL (0.2-1.0); BUN - BLOOD UREA NITROGEN 23 mg/dL (6-20); CALCIUM 8.8 mg/dL (8.5-10.3); CARBON DIOXIDE - CO2 27 mmol/L (21-32); CHLORIDE 101 mmol/L (101-111); CHOL/HDL RATIO 9.4 (<5.0); CHOLESTEROL 216 mg/dL; CREATININE 0.8 mg/dL (0.6-1.2); GFR - MDRD 111 (>89); GLUCOSE 251 mg/dL (70-100); HDL CHOLESTEROL 23 mg/dL; POTASSIUM 4.1 mmol/L (3.5-5.0); SODIUM 134 mmol/L (135-145); TOTAL PROTEIN 7.2 g/dL (6.7-8.2); TRIGLYCERIDES 599 mg/dL
[2020-05-12 13:00] LABS: THYROID STIMULATING HORMONE 1.96 uIU/mL (0.34-5.60)
[2020-05-12 13:17] LABS: LDL CHOLESTEROL,DIRECT 87 mg/dL; LDLD/HDL RATIO 3.8 (<3.6)
== END 2020-05-12 23:59 | disposition home or self-care (01) ==
LOC: LAB.WCP 08:00
PROVIDERS: ATTEND Family Medicine
DX: E11.9 Type 2 diabetes mellitus without complications (principal)
CPT/HCPCS: 36415; 80053; 80061; 83036; 83721; 84443; 85025

== ENCOUNTER 2020-07-01 09:47 | Outpatient (CLI) | payer MEDICAID ==
--- NOTE | 2020-07-01 10:22 | SLEEP CARE CONSULTATION ---
Information from patient questionnaire entered by Siena Austin. I have reviewed and concur with the information entered by Siena Austin. This document represents the service I personally performed and the decisions made by , Aline Yost ARNP. History of Present Illness Service Date and Time: 07/01/2020 0947 Previous diagnosis: Extremely Severe, Obstructive Sleep Apnea-Hypopnea Syndrome AHI: 93 (in 2011) Reason for follow up: annual (last seen 07/2018) Equipment type: CPAP Equipment obtained from: [employer] (no longer giving supplies to people) Mask style: Nasal (over the nose) Backup mask available: No (will need keep old one when replaced) Last cushion change: 2 years Prior sleep studies: Yes Year and Where: 2011 [facility] in [facility] additional information: ALFREDO MARK was diagnosed to have extremely severe, AHI 93, obstructive sleep apnea-hypopnea syndrome and returned today for CPAP therapy annual follow-up. CPAP Compliance Data Compliance data discussion: Alfredo did not have a memory card in his machine and we are unable to download his compliance information. He was given a memory card to insert into his machine and bring this in for download. He states he uses it every night. He states he sleeps about 6 hours nightly. Subjective Patient concerns: reports: mask discomfort, air blowing in eyes, mask leak noise, other (tube leakage). denies: aerophagia, condensation in mask/hose, nasal congestion, dry mouth, nose, throat, epistaxis Observed to snore while using device: No Current pressure setting perceived as: comfortable On therapy, patient: reports: sleeping better, awakening more refreshed, being more awake and alert during the day, more rested overall. denies: drowsiness while driving Initial [place] Sleepiness Scale score: 16 (in 2016) Current [place] Sleepiness Scale score: 7 Allergies and Home Medications Home medication list reviewed: Yes (no new meds) Review of Systems Review of systems same as previous: Yes (no changes) Physical Exam Blood Pressure: 135/95 Cuff size: wrist Heart Rate: 80 O2 Saturation: 97 Height: 6 ft Weight: 306 lb Weight change since last visit: 25 lb loss Body Mass Index: 41.5 BMI Classification: Morbidly Obese Impression and Plan 1. Obstructive Sleep Apnea-Hypopnea Syndrome, extremely severe, with unknown treatment compliance and unknown apnea control. On CPAP therapy, the patient has better sleep quality and is more rested overall. Patient will bring in his memor y card for us to get download information on his compliance. He has been having lots of mask leaking and the mask is broken at this time. He has been unable to get supplies for last 2 years with last DME supplier. Patient was informed that another DME can be used. I will have my apartment coordinator inform of DME options. A DWO prescription will then be made but not sent until his compliance information has been received. Patient advised to contact this office if further supply problems. Patient's apnea severity and rationale for treatment to reduce apnea, improve sleep quality and reduce cardiovascular and cerebrovascular events was reviewed. He has a history of diabetes. * Obtain compliance information before supplies/transfer order completed * Transfer DME and update supplies * Continue autoCPAP pressure at 10-15 cmH2O * Notify me if snoring with mask or feeling that the pressure is too much or too little * Attempt to lose weight * Call this office if any problems using CPAP * Return for follow up in 1 year, or sooner if concerns arise Counseling Topics: Spare mask, Weight loss health impact Visit Type: In Office Time Spent with Patient (minutes): 24 Provider Statement: I spent 100% of the Face to Face Visit with the patient with greater than 50% spent counseling the patient and coordination of care.
[2020-07-01 10:27] VITALS: BP 135/95
== END 2020-07-01 09:48 | disposition home or self-care (01) ==
LOC: SC 09:47
PROVIDERS: ATTEND Nurse Practitioner Family
DX: G47.33 Obstructive sleep apnea (adult) (pediatric) (principal); E66.01 Morbid (severe) obesity due to excess calories; Z68.41 Body mass index [BMI] 40.0-44.9, adult
CPT/HCPCS: 99212; 99213

== ENCOUNTER 2020-10-27 19:35 | Emergency (ER) | payer MEDICAID ==
[2020-10-27 19:48] VITALS: BP 149/91
--- NOTE | 2020-10-27 20:35 | ED Physician Documentation ---
History of Present Illness - Stated complaint Stated Complaint: SOA/CP - Chief complaint Chief Complaint: Resp - Additonal information Additional information: 34-year-old male presents the emergency department for evaluation of cough and congestion that began yesterday. He does endorse some nausea and diarrhea but no vomiting. No chest pain. He does feel somewhat short of breath. He did have a close contact exposure to a known Covid COVID-19 individual about 5 days ago. This patient is not vaccinated for COVID-19. He does carry a history of hypertension and diabetes but is not a smoker. Patient is obese carries a history of hypertension and diabetes. Non-smoker. Review of Systems Constitutional: reports: Fatigue. denies: Fever, Chills Eyes: reports: Reviewed and negative Ears: reports: Reviewed and negative Nose: reports: Congestion Throat: reports: Reviewed and negative Cardiac: denies: Chest pain / pressure, Palpitations, Pedal edema, Calf pain Respiratory: reports: Dyspnea, Cough. denies: Hemoptysis, Wheezing GI: reports: Nausea, Diarrhea. denies: Abdominal Pain, Vomiting : reports: Reviewed and negative Skin: reports: Reviewed and negative Musculoskeletal: reports: Reviewed and negative Neurologic: reports: Reviewed and negative PD PAST MEDICAL HISTORY - Past Medical History Past Medical History: Yes Cardiovascular: Hypertension Neuro: None Endocrine/Autoimmune: Type 2 diabetes GI: GERD : None HEENT: None Psych: ADD/ADHD Musculoskeletal: None Derm: None - Past Surgical History Past Surgical History: No - Present Medications Home Medications: Ambulatory Orders Medication Instructions Recorded Confirmed clonazePAM [Clonazepam] 0.5 mg PO DAILY PRN 12/30/19 12/30/19 Ondansetron Odt [Zofran] 4 mg TL Q6H PRN #10 tablet 12/31/19 Pantoprazole Sodium 20 mg PO DAILY #30 tablet. 12/31/19 Sucralfate [Carafate] 1 gm PO ACHS #20 tablet 12/31/19 - Allergies Allergies/Adverse Reactions: Allergies Allergy/AdvReac Type Severity Reaction Status Date / Time No Known Drug Allergies Allergy Verified 10/27/20 19:42 - Social History Does the pt smoke?: No Smoking Status: Never smoker Does the pt drink ETOH?: Yes Does the pt have substance abuse?: No - Immunizations Immunizations are current?: Yes - POLST Patient has POLST: No PD ED PE EXPANDED - General General: Alert, No acute distress, Other (morbid obesity) - Neck Neck: Supple w/out meningeal sx. No: Adenopathy - Cardiac Cardiac: Regular Rate, Radial strong equal, Pedal strong equal, Cap refill < 2 sec. No: Murmur Present - Respiratory Respiratory: Clear to ausultation lazarus. No: Distress, Labored, Retractions, Wheezing - Abdomen Abdomen: Normal Bowel sounds. No: Tender to palpation - Derm Derm: Normal color, Warm and dry. No: Rash Results - Vitals Vitals: Vital Signs - 24 hr 10/27/20 19:42 Temperature 36.7 C Heart Rate 98 Respiratory 19 Rate Blood Pressure 149/91 H O2 Saturation 98 Oxygen O2 Source Room air PD MEDICAL DECISION MAKING - ED course Complexity details: d/w patient ED course: 34-year-old male presents the emergency department for evaluation of cough congestion mild dyspnea in the setting of recent COVID-19 exposure. Patient is not vaccinated. Cardiopulmonary exam is unrevealing. No hypoxia or adventitious breath sounds. No hypoxia. Respiratory PCR screen is pending. Patient is a candidate for Mab therapy if he is Covid positive and I have encouraged him to return to the ER for Mab therapy should his result be positive. I have also encouraged him to obtain the COVID-19 vaccine when he is able. Departure - Departure Disposition: 01 Home, Self Care Clinical Impression: Exposure to COVID-19 virus, Cough Comments: [facility] are screening you for Covid 19. We will notify you only if the results are positive. If you are positive for COVID-19 you are a candidate for the monoclonal antibody therapy which can help your immune system fight the virus and perhaps reduce the duration of symptoms by few days. If you choose to accept this therapy and you are positive for COVID-19 please return to the emergency department but call ahead to ensure that we can have a room available. If at any point you develop sudden onset shortness of air, have oxygen saturations less than 90, have severe labored breathing or severe chest pain then please return to the ER for a second look. If you are negative for COVID-19 I do encourage you to get the vaccine as soon as you are able.
[2020-10-27 21:07] LABS: B. PARAPERTUSSIS- RESP PCR PAN NOT DETECTED; B. PERTUSSIS- RESP PCR PANEL NOT DETECTED; C. PNEUMONIAE- RESP PCR PANEL NOT DETECTED; CORONAVIRUS 229E-RESP PCR NOT DETECTED; CORONAVIRUS HKU1-RESP PCR NOT DETECTED; CORONAVIRUS NL63-RESP PCR NOT DETECTED; CORONAVIRUS OC43-RESP PCR NOT DETECTED; HUMAN METAPNEUMOVIRUS NOT DETECTED; INFLUENZA A- RESP PCR PANEL NOT DETECTED; INFLUENZA B - RESP PCR PANEL NOT DETECTED; M. PNEUMONIAE- RESP PCR PANEL NOT DETECTED; PARAINFLUENZA VIRUS 1 NOT DETECTED; PARAINFLUENZA VIRUS 2 NOT DETECTED; PARAINFLUENZA VIRUS 3 NOT DETECTED; PARAINFLUENZA VIRUS 4 NOT DETECTED; RHINOVIRUS/ENTEROVIRUS NOT DETECTED; RSV- RESP PCR PANEL NOT DETECTED; SARS-CoV-2 -RESP PCR PANEL NOT DETECTED
== END 2020-10-27 20:41 | disposition home or self-care (01) ==
LOC: ED 19:35
DX: R05 Cough (principal); R06.02 Shortness of breath; Z20.822 Contact with and (suspected) exposure to COVID-19; R11.0 Nausea; R19.7 Diarrhea, unspecified; I10 Essential (primary) hypertension; E10.9 Type 1 diabetes mellitus without complications; E66.01 Morbid (severe) obesity due to excess calories; Z68.41 Body mass index [BMI] 40.0-44.9, adult
CPT/HCPCS: 0202U; 93005; 99283; 99284

== ENCOUNTER 2020-12-20 11:57 | Emergency (ER) | payer MEDICAID ==
--- NOTE | 2020-12-20 14:25 | ED Physician Documentation ---
PD HPI DYSPNEA - Stated complaint Stated Complaint: COUGH,BODY ACHES,CHILLS - Chief complaint Chief Complaint: Resp - History obtained from History obtained from: Patient - Additional information Additional information: 6 days of productive cough, sometimes creamy sometimes bloody sputum. Some shortness of breath. Fevers earlier in the week. Not Covid vaccinated but no known Covid exposures. He is planning to be vaccinated. Review of Systems Constitutional: reports: Fever (gone) Cardiac: reports: Chest pain / pressure Respiratory: reports: Dyspnea, Cough PD PAST MEDICAL HISTORY - Past Medical History Cardiovascular: Hypertension Neuro: None Endocrine/Autoimmune: Type 2 diabetes GI: GERD : None HEENT: None Psych: ADD/ADHD Musculoskeletal: None Derm: None - Past Surgical History Past Surgical History: No - Present Medications Home Medications: Ambulatory Orders Medication Instructions Recorded Confirmed Albuterol Sulf [Ventolin Hfa 1 - 2 puffs INH Q4HR PRN #1 inhaler 12/20/20 Inhaler] Doxycycline Hyclate 100 mg PO BID #14 tab 12/20/20 Glipizide [Glipizide ER] 10 mg PO DAILY 12/20/20 12/20/20 Pioglitazone HCl [Actos] 30 mg PO DAILY 12/20/20 12/20/20 Pravastatin [Pravachol] 20 mg PO HS 12/20/20 12/20/20 guaiFENesin/CODEINE [Robitussin AC] 5 - 10 ml PO Q6H PRN #120 ml 12/20/20 lisinopriL [Zestril] 5 mg PO DAILY 12/20/20 12/20/20 - Allergies Allergies/Adverse Reactions: Allergies Allergy/AdvReac Type Severity Reaction Status Date / Time No Known Drug Allergies Allergy Verified 12/20/20 12:33 - Social History Does the pt smoke?: No Smoking Status: Never smoker Does the pt drink ETOH?: Yes Does the pt have substance abuse?: No - Immunizations Immunizations are current?: Yes - POLST Patient has POLST: No PD ED PE NORMAL - Vitals Vital signs reviewed: Yes - General General: Alert and oriented X 3, No acute distress - HEENT HEENT: Pharynx benign - Neck Neck: Supple, no meningeal sign, No bony TTP - Cardiac Cardiac: RRR, No murmur - Respiratory Respiratory: No respiratory distress, Other (rhonchorous throughout) - Abdomen Abdomen: Soft, Non tender - Back Back: No CVA TTP, No spinal TTP - Derm Derm: Normal color, Warm and dry - Extremities Extremities: No edema, No calf tenderness / cord - Neuro Neuro: Alert and oriented X 3, Normal speech Results - Vitals Vitals: Vital Signs - 24 hr 12/20/20 12/20/20 12:27 14:52 Temperature 36.9 C 36.6 C Heart Rate 71 73 Respiratory 18 16 Rate Blood Pressure 143/99 H 142/105 H O2 Saturation 95 98 Oxygen O2 Source Room air PD MEDICAL DECISION MAKING - ED course ED course: Single view chest x-ray interpreted contemporaneously by me is normal. Given body habitus and underlying diabetes probably merits antibiotics despite clear chest x-ray for presumed bronchitis. Departure - Departure Disposition: 01 Home, Self Care Clinical Impression: Bronchitis Condition: Good Record reviewed to determine appropriate education?: Yes Instructions: ED Upper Resp Infec Abx Tx Prescriptions: Albuterol Sulf [Ventolin Hfa Inhaler] 1 - 2 puffs INH Q4HR PRN #1 inhaler PRN Reason: Shortness Of Air/Wheezing Doxycycline Hyclate 100 mg PO BID #14 tab guaiFENesin/CODEINE [Robitussin AC] 5 - 10 ml PO Q6H PRN #120 ml PRN Reason: Cough Comments: Prescriptions sent electronically to [facility] in [place]. You have a Covid test pending. You need to self quarantine until the result is done and negative. Do not leave your house. Do not get near anybody. The results should be done in 48 to 72 hours. We will call with a positive result, the fastest way to get a negative result for confirmation though is to go to the hospital website at [email or web address], click on the my [facility] tab and sign up for the patient portal. If any friends or family get sick and would like to have a Covid test done, but do not have signs or symptoms that would necessitate being hospitalized, we encourage testing through our coronavirus swabbing station, call [phone] to schedule an appointment. Forms: Activity restrictions Discharge Date/Time: 12/20/20 14:59
--- NOTE | 2020-12-20 14:39 | XRAY Report ---
PROCEDURE: Chest 1 View X-Ray INDICATIONS: Cough TECHNIQUE: One view of the chest was acquired. COMPARISON: None. FINDINGS: SUPPORT DEVICES: None. LUNG/PLEURA: No focal consolidation or pulmonary edema. No pleural effusion or space-occupying pneumo thorax. MEDIASTINUM: The cardiomediastinal silhouette is within normal limits. BONES/SOFT TISSUES: No acute abnormality. IMPRESSION: 1.No acute cardiopulmonary abnormality. Reviewed by: Jarad Jaramillo MD on 12/20/2020 2:38 PM PDT Approved by: Jarad Jaramillo MD on 12/20/2020 2:38 PM PDT Station ID: [id number]
[2020-12-20 14:52] VITALS: BP 142/105
== END 2020-12-20 14:59 | disposition home or self-care (01) ==
LOC: ED 11:57
DX: J40 Bronchitis, not specified as acute or chronic (principal); I10 Essential (primary) hypertension; E11.9 Type 2 diabetes mellitus without complications; K21.9 Gastro-esophageal reflux disease without esophagitis; Z20.822 Contact with and (suspected) exposure to COVID-19; Z79.84 Long term (current) use of oral hypoglycemic drugs; Z79.899 Other long term (current) drug therapy
CPT/HCPCS: 99284